=== PATIENT | female | born 1980 | race Caucasian/White ===

== ENCOUNTER 2024-01-26 12:33 | Emergency (ER) | payer OTHER, SELFPAY ==
[2024-01-26 12:35] VITALS: BP 113/71
--- NOTE | 2024-01-26 13:38 | ED.MUSCINJ ---
HPI-Injury
General
Chief Complaint: Musculo-Skeletal Complaint
Time Seen by Provider: 01/26/24 12:50
History of Present Illness-Injury
Initial Injury comments:
Patient presents the emergency department with left shoulder pain. Notes she has a history of prior CVA and last night her toddler pulled on her left arm. She states that she occasionally has subluxation of the shoulder but feels like this is more
painful. Denies injury elsewhere. Has baseline diminished sensation in that extremity without any changes since injury.
Past History
Past History
ED Past Medical History: None
Social History
Tobacco: Non-smoker
Personal:
Living: with family
Employment: Employed
Phy Exam
Physical Exam
Physical Exam:
General: No acute distress
Head: NCAT
Neck, Normal in appearance, no swelling
Respiratory: No Respiratory distress
Abdomen: No distension
Ext: Left upper extremity with chronic weakness and increased tone. There is no deformity of the shoulder. Sensation is at baseline. Palpable radial pulses.
Neuro: VALERIO, AOx4
Psych: Normal affect
Skin: Normal color
Injury Course
Orders/Labs/Results
Orders:
Orders
01/26/24 12:34
Shoulder, Left 2 View CR [CR Shoulder - Left Min 2 View*] Urgent
Comment:
Reason For Exam: pain injury
01/26/24 13:39
Sling [Braces/Immobilizers] As Directed
Type of Brace/Immobilizer: Sling
*Critical Care Note
Total Time (30-74mins, 75-104mins- exclusive of procedures): Not Applicable
ED Attending Note
-
Portions of this chart may have been created with voice recognition software.� Occasional wrong word or��sound alike� substitutions may have occurred due to the inherent limitations of voice recognition software.
Discharge Plan
Departure
Patient Disposition: Home (Routine Discharge)
Date of Disposition: 01/26/24
Time of Disposition: 16:13
Patient with high blood pressure during this ER visit?: No
Discharge Problem:
Subluxation of left glenohumeral joint
Prescriptions:
No Action
[id number] [ Multi] 1 EACH tablet
1 ea PO DAILY
Magnesium
1 tab PO DAILY
acetaminophen 325 MG tablet
650 mg PO Q4HPRN PRN (Reason: mild pain) 0RF
ibuprofen 600 MG tablet
600 mg PO Q4HPRN PRN (Reason: cramps) 0RF
Referrals:
[facility], [Other]
Jacky Trevizo Jr., DO [Family Provider] -
Activity Restrictions/Additional Instructions:
Please wear sling over the next few days. Avoid lifting anything with the left arm. Follow-up with your orthopedist this week.
Interventions
Interventions:
*Risk Screen - Suicide Last Done: 01/26/24 16:15
*General Assessment Last Done: 01/26/24 12:35
*Neglect/Abuse Screening Last Done: 01/26/24 16:15
ED- Fall Risk Assessment Last Done: 01/26/24 12:34
*Nursing Disposition Last Done: 01/26/24 16:15
ED-Musculoskeletal Assessment Last Done: 01/26/24 12:34
Discharge Date and Time
Discharge Date/Time: 01/26/24 16:15
Print Language: [place]
[2024-01-26 16:15] VITALS: BP 132/72
== END 2024-01-26 16:15 | disposition home or self-care (01) ==
LOC: EMR 12:33
PROVIDERS: EMERGENCY PHYSICIAN Emergency Medicine; FAMILY PHYSICIAN Family Medicine
DX: S43.002A Unspecified subluxation of left shoulder joint, initial encounter (principal); X50.9XXA Other and unspecified overexertion or strenuous movements or postures, initial encounter; Z86.73 Personal history of transient ischemic attack (TIA), and cerebral infarction without residual deficits
CPT/HCPCS: 99283; 73030

== ENCOUNTER → 2024-01-28 14:34 | Outpatient (REF) | payer OTHER, SELFPAY | LOC: MRI 3T 14:34 | PROVIDERS: ATTENDING PHYSICIAN Physical Medicine & Rehabilitation; FAMILY PHYSICIAN Family Medicine | DX: M75.102 Unspecified rotator cuff tear or rupture of left shoulder, not specified as traumatic (principal) | CPT/HCPCS: 73221 ==

== ENCOUNTER → 2024-04-22 11:02 | Outpatient (REF) | payer OTHER, SELFPAY | LOC: PAVMRI 11:02 | PROVIDERS: ATTENDING PHYSICIAN Nurse Practitioner; FAMILY PHYSICIAN Family Medicine | DX: I61.0 Nontraumatic intracerebral hemorrhage in hemisphere, subcortical (principal); R90.89 Other abnormal findings on diagnostic imaging of central nervous system | CPT/HCPCS: 70553; A9575 ==

== ENCOUNTER 2024-07-04 15:04 | Outpatient (RCR) | payer OTHER, SELFPAY | END 2024-07-04 23:59 | disposition home or self-care (01) | LOC: RPT 15:04 | PROVIDERS: ATTENDING PHYSICIAN Family Medicine | DX: M25.512 Pain in left shoulder (principal); I61.5 Nontraumatic intracerebral hemorrhage, intraventricular; I61.0 Nontraumatic intracerebral hemorrhage in hemisphere, subcortical; G81.94 Hemiplegia, unspecified affecting left nondominant side; Z73.6 Limitation of activities due to disability | CPT/HCPCS: 97110; 97112; 97140; 97162 ==

== ENCOUNTER 2024-08-06 15:32 | Outpatient (RCR) | payer OTHER, SELFPAY | END 2024-08-06 23:59 | disposition home or self-care (01) | LOC: RPT 15:32 | PROVIDERS: ATTENDING PHYSICIAN Family Medicine | DX: M25.512 Pain in left shoulder (principal); I61.5 Nontraumatic intracerebral hemorrhage, intraventricular; I69.254 Hemiplegia and hemiparesis following other nontraumatic intracranial hemorrhage affecting left non-dominant side; I61.0 Nontraumatic intracerebral hemorrhage in hemisphere, subcortical; Z98.890 Other specified postprocedural states; I69.198 Other sequelae of nontraumatic intracerebral hemorrhage; G81.94 Hemiplegia, unspecified affecting left nondominant side; Z73.6 Limitation of activities due to disability; R20.8 Other disturbances of skin sensation | CPT/HCPCS: 97010; 97014; 97110; 97112; 97140 ==

== ENCOUNTER 2024-09-03 16:28 | Outpatient (RCR) | payer OTHER, SELFPAY | END 2024-09-04 05:44 | disposition home or self-care (01) | LOC: RPT 16:28 | PROVIDERS: ATTENDING PHYSICIAN Family Medicine | DX: Z73.6 Limitation of activities due to disability; M25.512 Pain in left shoulder; I69.254 Hemiplegia and hemiparesis following other nontraumatic intracranial hemorrhage affecting left non-dominant side; I69.198 Other sequelae of nontraumatic intracerebral hemorrhage; R20.8 Other disturbances of skin sensation; Z98.890 Other specified postprocedural states; I61.5 Nontraumatic intracerebral hemorrhage, intraventricular; I61.0 Nontraumatic intracerebral hemorrhage in hemisphere, subcortical; G81.94 Hemiplegia, unspecified affecting left nondominant side | CPT/HCPCS: 97014; 97110; 97112; 97140 ==

== ENCOUNTER 2024-09-29 14:21 | Outpatient (RCR) | payer OTHER, SELFPAY | END 2024-09-29 23:59 | disposition home or self-care (01) | LOC: RPT 14:21 | PROVIDERS: FAMILY PHYSICIAN Family Medicine | DX: M62.89 Other specified disorders of muscle (principal); N39.3 Stress incontinence (female) (male); Z73.6 Limitation of activities due to disability; Z86.73 Personal history of transient ischemic attack (TIA), and cerebral infarction without residual deficits | CPT/HCPCS: 97110; 97140; 97162; 97530 ==

== ENCOUNTER 2024-10-20 13:44 | Outpatient (RCR) | payer OTHER, SELFPAY | END 2024-10-20 23:59 | disposition home or self-care (01) | LOC: RPT 13:44 | PROVIDERS: ATTENDING PHYSICIAN Student in an Organized Health Care Education/Training Program; FAMILY PHYSICIAN Family Medicine | DX: M62.89 Other specified disorders of muscle (principal); N39.3 Stress incontinence (female) (male); Z73.6 Limitation of activities due to disability; Z86.73 Personal history of transient ischemic attack (TIA), and cerebral infarction without residual deficits | CPT/HCPCS: 97014; 97110; 97112; 97140; 97530 ==

== ENCOUNTER 2024-11-13 14:00 | Outpatient (RCR) | payer OTHER, SELFPAY | END 2024-11-13 23:59 | disposition home or self-care (01) | LOC: RPT 14:00 | PROVIDERS: ATTENDING PHYSICIAN Student in an Organized Health Care Education/Training Program; FAMILY PHYSICIAN Family Medicine | DX: M62.89 Other specified disorders of muscle (principal); N39.3 Stress incontinence (female) (male); Z73.6 Limitation of activities due to disability; Z86.73 Personal history of transient ischemic attack (TIA), and cerebral infarction without residual deficits | CPT/HCPCS: 97110; 97112; 97140 ==

== ENCOUNTER 2024-12-11 13:47 | Outpatient (RCR) | payer OTHER, SELFPAY | END 2024-12-12 10:25 | disposition home or self-care (01) | LOC: RPT 13:47 | PROVIDERS: ATTENDING PHYSICIAN Student in an Organized Health Care Education/Training Program; FAMILY PHYSICIAN Family Medicine | DX: M62.89 Other specified disorders of muscle (principal); N39.3 Stress incontinence (female) (male); Z73.6 Limitation of activities due to disability; Z86.73 Personal history of transient ischemic attack (TIA), and cerebral infarction without residual deficits | CPT/HCPCS: 97110; 97112; 97140; 97530 ==